=== PATIENT | male | born 1965 | race Caucasian/White ===

== ENCOUNTER → 2020-08-19 | Outpatient (CLI) | payer MEDICARE ==
[2020-08-20 10:14] LABS: CREATININE, URINE 89.5 mg/dL (Not Estab.)
== END ==
LOC: LAB 06:44
PROVIDERS: Internal Medicine Nephrology
DX: N18.30 Chronic kidney disease, stage 3 unspecified (principal)
CPT/HCPCS: 36415; 80048; 82043; 82570

== ENCOUNTER → 2021-03-08 | Outpatient (CLI) | payer MEDICARE ==
[2021-03-09 08:10] LABS: MICROALB/CREAT RATIO <4 (0-29)
== END ==
LOC: LAB 06:17
PROVIDERS: Internal Medicine Nephrology
DX: N18.30 Chronic kidney disease, stage 3 unspecified (principal)
CPT/HCPCS: 36415; 80048; 82043; 82570

== ENCOUNTER → 2021-05-21 | Outpatient (CLI) | payer MEDICARE | LOC: KOH-I 08:43 | DX: D69.6 Thrombocytopenia, unspecified (principal); N28.1 Cyst of kidney, acquired | CPT/HCPCS: 76700 ==

== ENCOUNTER → 2022-01-06 | Outpatient (CLI) | payer MEDICARE ==
[2022-01-06 10:11] LABS: RED BLOOD COUNT 4.94 M/UL (4.20-5.50); WHITE BLOOD COUNT 6.8 K/UL (4.5-11.0)
== END ==
LOC: LAB 09:10
PROVIDERS: Nurse Practitioner Primary Care
DX: R60.0 Localized edema (principal)
CPT/HCPCS: 36415; 71046; 80053; 81001; 82043; 82570; 85025; 85379

== ENCOUNTER → 2022-01-09 | Outpatient (CLI) | payer MEDICARE | LOC: US 09:54 | DX: R60.0 Localized edema (principal) | CPT/HCPCS: 93970 ==